=== PATIENT | female | born 1955 | race African-American/Black ===

== ENCOUNTER 2018-02-02 13:20 | Emergency (ER) | payer MEDICAID ==
[~2018-02-02] VITALS: Ht 162.6 cm; Wt 76.0 kg
[2018-02-02] MEDS ORDERED: IBUPROFEN 600MG TABLET PO ONE (13:30)
[2018-02-02] MEDS ORDERED: ACETAMINOPHEN 500MG TABLET PO ONE (14:45)
[2018-02-02] MEDS ORDERED: HYDROCODONE/ACETAMINOPHEN 5/325MG TABLET PO ONE (16:30)
[2018-02-02 17:53] VITALS: BP 113/81
== END 2018-02-02 17:55 | disposition home or self-care (01) ==
LOC: ER 14:30
DX: S42.302A Unspecified fracture of shaft of humerus, left arm, initial encounter for closed fracture (principal); W19.XXXA Unspecified fall, initial encounter; Y93.89 Activity, other specified; Y92.89 Other specified places as the place of occurrence of the external cause; Y99.8 Other external cause status
CPT/HCPCS: 29240; 73030; 73060; 99284; L3670